=== PATIENT | male | born 1985 | race African-American/Black ===

== ENCOUNTER 2021-04-03 00:35 | Emergency (ER) | payer OTHER ==
[2021-04-03 00:56] VITALS: BP 122/75; PULSE 77; TEMP 97.9; BMI 20.9
[2021-04-03] MEDS ORDERED: ACETAMINOPHEN 325 MG TABLET (FP) PO ONE (01:46)
[2021-04-03] MEDS ORDERED: KETOROLAC TROMETHAMINE 30 MG/1 ML VIAL IM ONE (01:46)
[2021-04-03] MEDS ORDERED: KETOROLAC TROMETHAMINE 30 MG/1 ML VIAL ONE (01:50)
[2021-04-03] MEDS ORDERED: ACETAMINOPHEN 325 MG TABLET (FP) ONE (01:50)
== END 2021-04-03 02:37 | disposition home or self-care (01) ==
LOC: JER 00:35
PROC: 3E0233Z Introduction of Anti-inflammatory into Muscle, Percutaneous Approach (ICD-10-PCS; principal; 2021-04-03)
DX: R07.89 Other chest pain (principal)
CPT/HCPCS: 93005; 93010; 99284-25